=== PATIENT | female | born 1995 | race Two or more races ===

== ENCOUNTER 2024-04-10 17:05 | Emergency (ER) | payer SELFPAY ==
[2024-04-10 17:10] VITALS: BP 110/73; BMI 22.5
[2024-04-10 17:52] LABS: COVID-19 Antigen Negative (Negative)
--- NOTE | 2024-04-10 17:54 | ED.GENMED ---
History of Present Illness
General
Chief Complaint: Cold/Flu/URI Symptoms
Source: patient and family
Exam Limitations: none
Time Seen by Provider: 04/10/24 17:42
Nursing documentation reviewed up to this point in time: agreed with
History of Present Illness
History of Present Illness:
Patient to ED with complaint of fever, cough, bodyaches. Symptoms started 2 days ago. Brought to ED by family for eval. She is currently 12 weeks . No complaints.
Past History
Past History
ED Past Medical History: None
Review of Systems
Review of Systems
Allergies reviewed?: Yes
All Other Systems: ROS reviewed and negative except as documented in HPI and ROS
Constitutional: Reports fever and fatigue
EENT: Reports sore throat, runny nose and other (ear pain)
Respiratory: Reports cough
Cardiac: Reports no symptoms
ABD/GI: Reports no symptoms
: Reports no symptoms
Musculoskeletal: Reports no symptoms
Skin: Reports no symptoms
Neurological: Reports no symptoms
Psychiatric: Reports no symptoms
Phy Exam
General Physical Exam
General Presentation: well appearing and no apparent distress
General age: appears stated age
General Skin: warm and dry
General Habitus: normal
General Mental: alert
ENT Exam
ENT Exam: TM's normal, pharynx normal and swallowing well
Cardiovascular Exam
Cardiovascular Exam: regular rate/rhythm and no edema
Pulmonary Exam
Pulmonary Exam: lungs clear and no respiratory distress
Neurological Exam
Neurological Exam: alert and oriented x3
Musculoskeletal Exam
Musculoskeletal Exam: full ROM and neuro vasc intact
Skin Exam
Skin Exam: normal color, warm/dry and no rash
Psychiatric Exam
Psychiatric Exam: normal mood/affect
Course
Orders/Labs/Results
Orders:
Orders
04/10/24 17:26
COVID-19 Antigen Urgent
Source: Nasal Swab
Influenza A+B Rapid Molecular Urgent
JEAN-PIERRE Source: Nasal Swab
Specimen Description:
04/10/24 17:48
Oseltamivir Phosphate [Tamiflu] 45 mg PO NOW STA
Vital Signs
Initial and Last Documented VS:
Initial Vital Signs
Temp Pulse Resp BP Pulse Ox
98.8 F 112 18 110/73 98
04/10/24 17:10 04/10/24 17:10 04/10/24 17:10 04/10/24 17:10 04/10/24 17:10
Last Documented Vital Signs
Temp Pulse Resp BP Pulse Ox
98.8 F 112 18 110/73 98
04/10/24 17:10 04/10/24 17:10 04/10/24 17:10 04/10/24 17:10 04/10/24 17:10
*Critical Care Note
Total Time (30-74mins, 75-104mins- exclusive of procedures): Not Applicable
Update Note
Update Note:
Influenza positive. tamiflu started. SHe is discharge home and will schedule an appointment with [facility]. Given number for OB followup also.
ED Attending Note
-
Portions of this chart may have been created with voice recognition software.� Occasional wrong word or��sound alike� substitutions may have occurred due to the inherent limitations of voice recognition software.
Discharge Plan
Departure
Patient Disposition: Home (Routine Discharge)
Date of Disposition: 04/10/24
Time of Disposition: 17:49
Patient with high blood pressure during this ER visit?: No
Condition: Good
Covid-19: Not Applicable
Discharge Problem:
Influenza
Instructions: Fever, Adult (DC), Flu in adults - Discharge instructions
Prescriptions:
New
oseltamivir [Tamiflu] 75 mg capsule
75 mg PO BID 5 Days Qty: 10 0RF
Referrals:
[facility] - Follow up in 2-3 days
Anna Bryant MD [Active] - Next open appointment
Interventions
Interventions:
*ED COVID-19 Vaccine History Last Done: 04/10/24 17:10
ED- Pulmonary Assessment Last Done: 04/10/24 17:28
Discharge Date and Time
Print Language: BELGIAN
[2024-04-10] MEDS: TAMIFLU 45 MG PO (17:57)
== END 2024-04-10 18:00 | disposition home or self-care (01) ==
LOC: EMR 17:05
PROVIDERS: EMERGENCY PHYSICIAN Emergency Medicine
DX: O99.511 Diseases of the respiratory system complicating pregnancy, first trimester (principal); J11.1 Influenza due to unidentified influenza virus with other respiratory manifestations; Z3A.12 12 weeks gestation of pregnancy; Z11.52 Encounter for screening for COVID-19; R51.9 Headache, unspecified; Z88.0 Allergy status to penicillin; Z91.018 Allergy to other foods; Z91.010 Allergy to peanuts
CPT/HCPCS: 99283; 87502; 87811